=== PATIENT | male | born 1990 | race Caucasian/White ===

== ENCOUNTER 2018-02-12 10:12 | Inpatient (IN) | payer MEDICAID, OTHER ==
--- NOTE | 2018-02-12 10:37 | C.PDOC ---
History Of Present Illness <Yasmeen Patel - Last Filed: 02/12/18 12:56> <Missy Benedict - Last Filed: 02/12/18 13:36> 27 year old male presents to the emergency department status-post an intentional overdose attempted two days ago. Patient reports that he took crystal meth, an unknown pain medication, and Xanax because he "wanted to get high" but he has since been having increased suicidal thoughts. Yesterday, patient reports that he thought about hanging himself but did not make an attempt to do so. He denies using drugs or alcohol since two days ago, and prior history of suicidal ideation. (Yasmeen Patel) History Per: Patient History/Exam Limitations: no limitations Onset/Duration Of Symptoms: Days (2) Suicide/Self Injury Attempted (Context): Ingestion Modifying Factor(s): Other (crystal meth, unknown pain medications, Xanax) Associated Symptoms: Suicidal Thoughts, Suicidal Plan <Yasmeen Patel - Last Filed: 02/12/18 12:56> <Missy Benedict - Last Filed: 02/12/18 13:36> Time Seen by Provider: 02/12/18 10:25 Chief Complaint (Nursing): Psychiatric Evaluation Past Medical History Reviewed: Historical Data, Nursing Documentation, Vital Signs - Medical History PMH: Depression, HIV Denies: Chronic Kidney Disease Surgical History: No Surg Hx Family History: States: No Known Family Hx - Social History Hx Alcohol Use: No Hx Substance Use: Yes - Immunization History Hx Tetanus Toxoid Vaccination: No Hx Influenza Vaccination: Yes Hx Pneumococcal Vaccination: No <Yasmeen Patel - Last Filed: 02/12/18 12:56> Vital Signs: Last Vital Signs Temp 97.9 F 02/12/18 10:17 Pulse 78 02/12/18 10:17 Resp 16 02/12/18 10:17 BP 104/72 02/12/18 10:17 Pulse Ox 98 02/12/18 12:57 Review Of Systems Except As Marked, All Systems Reviewed And Found Negative. Psych: Positive for: Suicidal ideation. Negative for: Psychosis, Withdrawal <Yasmeen Patel - Last Filed: 02/12/18 12:56> Physical Exam - Physical Exam Appears: Non-toxic, No Acute Distress Skin: Warm, Dry Head: Atraumatic, Normacephalic Eye(s): bilateral: Normal Inspection Neck: Normal, Supple Chest: Symmetrical Cardiovascular: Rhythm Regular Respiratory: Normal Breath Sounds Extremity: Normal ROM Neurological/Psych: Oriented x3, Normal Speech, Normal Cognition, Other (active suicidal ideation, no acute psychosis, no acute detox or withdrawal) <Yasmeen Patel - Last Filed: 02/12/18 12:56> ED Course And Treatment - Laboratory Results Result Diagrams: 02/12/18 10:57 02/12/18 10:57 O2 Sat by Pulse Oximetry: 98 (RA) Pulse Ox Interpretation: Normal - Radiology CXR: Interpreted by Me, Viewed By Me CXR Interpretation: Yes: No Acute Disease. No: Infiltrates Progress Note: Plan: EKG. Acetaminophen. Alcohol Serum. CMP. Drug Screen. Salicylate. CBC. CXR One View. Crisis Eval. Urinalysis <Yasmeen Patel - Last Filed: 02/12/18 12:56> - Laboratory Results Result Diagrams: 02/12/18 10:57 02/12/18 10:57 <Msisy Benedict - Last Filed: 02/12/18 13:36> Progress - Data Reviewed Data Reviewed: Lab, EKG, Old records <Yasmeen Patel - Last Filed: 02/12/18 12:56> <Missy Benedict - Last Filed: 02/12/18 13:36> - Re-Evaluation Re-evaluation Note: 02/12/18 12:38 D/W CRISIS, S/P EVAL, PENDING DISPO 02/12/18 12:51 MED CLEAR FOR CRISIS. CRISIS NOTIFIED (Yasmeen Patel) Disposition Counseled Patient/Family Regarding: Studies Performed, Diagnosis - Disposition Disposition Time: 13:00 <Yasmeen Patel - Last Filed: 02/12/18 12:56> <Missy Benedict - Last Filed: 02/12/18 13:36> - Disposition Condition: STABLE Forms: [facility] (Bots[place]an) - Clinical Impression Clinical Impression: Alcohol abuse, Suicidal ideation - Scribe Statement The provider has reviewed the documentation as recorded by the Scribe (Cleve Zelaya) <Yasmeen Patel - Last Filed: 02/12/18 12:56> <Missy Benedict - Last Filed: 02/12/18 13:36> - Scribe Statement Provider Attestation: All medical record entries made by the Scribe were at my direction and personally dictated by me. I have reviewed the chart and agree that the record accurately reflects my personal performance of the history, physical exam, medical decision making, and the department course for this patient. I have also personally directed, reviewed, and agree with the discharge instructions and disposition. (Yasmeen Patel) Physician Patient Turnover Patient Signed Over To: Missy Benedict Handoff Comments: FU DISPO <Yasmeen Patel - Last Filed: 02/12/18 12:56> Addendum <Yasmeen Patel - Last Filed: 02/12/18 12:56> <Missy Benedict - Last Filed: 02/12/18 13:36> Addendum: 02/12/18 13:36 Patient accepted for psychiatric admission by Dr. Sr - major depression. ( Missy Benedict)
[2018-02-12 11:08] LABS: BASO % 0.3 % (0.0-2.0); EOS % 0.3 % (0.0-4.0); HEMOGLOBIN 16.7 g/dL (12.0-18.0); LYMPH # 2.1 K/uL (1.0-4.3); LYMPH % 16.2 % (20.0-40.0); MEAN CELL VOLUME 84.2 fL (80.0-94.0); MEAN CORPUSCULAR HEMOGLOBIN 28.6 pg (27.0-31.0); MEAN PLATELET VOLUME 8.3 fL (7.2-11.7); MONO # 0.9 K/uL (0.0-0.8); NEUT % 76.2 % (50.0-75.0); NRBC % 0.1 % (0.0-2.0); RBC 5.86 Mil/uL (4.40-5.90); RED CELL DISTRIBUTION WIDTH 14.2 % (11.5-14.5); WHITE BLOOD COUNT 13.2 K/uL (4.8-10.8)
[2018-02-12 11:10] LABS: URINE BILIRUBIN NEGATIVE (NEGATIVE); URINE BLOOD NEGATIVE (NEGATIVE); URINE CLARITY Clear (Clear); URINE COLOR Amber (YELLOW); URINE GLUCOSE (UA) NORMAL (Normal); URINE LEUKOCYTE ESTERASE NEG Leu/uL (Negative); URINE PROTEIN 1+ mg/dL (NEGATIVE)
[2018-02-12 11:25] LABS: ACETAMINOPHEN < 10.0 ug/mL (10.0-30.0); SALICYLATE < 1.0 mg/dL 1
[2018-02-12 11:26] LABS: ALB/GLOB RATIO 1.4 (1.0-2.1); ALBUMIN 5.3 g/dL (3.5-5.0); ALT/SGPT 67 U/L (21-72); AST/SGOT 90 U/L (17-59); BLOOD UREA NITROGEN 26 mg/dL (9-20); CALCIUM 10.2 mg/dl (8.6-10.4); GFR AFRICAN-AMERICAN > 60; GFR NON-AFRICAN AMERICAN > 60
[2018-02-12 11:34] LABS: BARBITURATES, UR NEGATIVE (NEGATIVE); OPIATES, UR NEGATIVE (NEGATIVE); PHENCYCLIDINE, UR NEGATIVE (NEGATIVE)
[2018-02-12 11:36] LABS: BENZODIAZEPINES, UR POSITIVE (NEGATIVE)
--- NOTE | 2018-02-12 14:32 | PCM.BM ---
<Antonietta Escobedo - Last Filed: 02/12/18 14:31> Treatment Plan Problems - Problems identified on initial assessmt Depression Date Initiated: 02/12/18 Time Initiated: 14:31 Assessment reference: NA Status: Active Suicidal Ideation Date Initiated: 02/12/18 Time Initiated: 14:31 Assessment reference: NA Status: Active Treatment assets and liabiliti Patient Assests: adapts well, cooperative, ADL independent, negotiates basic needs, cognitively intact Patient Liabilities: live alone (Lives with grandmother), financial problems, poor support system, substance abuse (Crystal Meth), medical problems (HIV positive) - Milieu Protocol Maintain good personal hygiene: daily Encourage regular showers, daily Remind patient to perform daily oral care, daily Assist patient to perform ADL's (Self) Conduct patient checks and document Observation sheet: Q15 minutes (Safety) Maintain personal safety: every shift Educate patient to report safety concerns to staff, every shift Monitor environment for contraband/sharps Medication safety: Monitor for expected outcome, potential side effects: every shift, Assess barriers to learning: every shift, Assess readiness for medication education: every shift <Linda Mason - Last Filed: 02/13/18 11:35> - Diagnosis (1) Moderate major depression, single episode Status: Acute Interventions: 02/13/18 11:35 * Assess/adjust medications daily and /or as needed * See patient on an individual basis 7x/week to assess symptoms of depression * Monitor for side effects & effectiveness of medications * <Linda Chavez - Last Filed: 02/13/18 13:30> Family Contact Family involvement: Family/SO is involved Family contact: Patient agrees to contact Family contact name: Brayden Corbin-father Family contacted how many times per week?: 1 - Goals for Treatment Patient goals for treatment: "I want to go to rehab." Discharge/Continuing Care - Education Needs Education Needs: Patient Medication, Patient Coping Skills, Patient Placement options, Patient Community resources - Discharge Discharge Criteria: Tolerates medication w/o severe side effects, No longer exhibiting s/s of withdrawal, Reduction of target symptoms Discharge to:: Substance Abuse Rehab - Treatment Team Participation Discussed with Family/SO: No Was Patient/Family/SO present at Treatment Team Meeting: Yes
--- NOTE | 2018-02-12 14:55 | RAD ---
PROCEDURE: CHEST RADIOGRAPH, 1 VIEW HISTORY: overdose COMPARISON: None available. FINDINGS: LUNGS: Clear. PLEURA: No pneumothorax or pleural fluid seen. CARDIOVASCULAR: Normal. OSSEOUS STRUCTURES: No significant abnormalities. VISUALIZED UPPER ABDOMEN: Normal. OTHER FINDINGS: None. IMPRESSION: No active disease.
--- NOTE | 2018-02-13 10:23 | PCM.PSYCH ---
Initial Psychiatric Evaluation - Initial Psychiatric Evaluation Type of Admission: Voluntary Legal Status: Capacity Chief Complaint (in patient's own words): I was feeling depressed and suicidal.' History of Present Illness and Precipitating Events: Pt is a 27 year old HM, who was escorted to the hospital by the family due to depressed mood and suicidal ideation. Patient has history of few inpatient psychiatric hospitalizations. His last discharged from [facility] almost 2 years ago. He reports of seeing an outpatient doctor at [facility]. As per the patient he relapsed on crystal meth. Patient reports of injecting 1-3 bags crystal meth daily. Yesterday he became increasingly depressed and suicidal, and came to the hospital to get help. As per the ED note, pt states he is unable to identify a specific trigger for the suicidal ideation, but attributes "at least partly because I haven't used crystal." When asked if patient has a specific suicide plan, he states "I'll pull a [place] and hang myself." Pt states he last used crystal meth on Tuesday night. Pt states he has not eaten, slept, or drank since 2 days. Pt states while withdrawing, pt saw "shadows," but denies current hallucinations. Pt denies H/I. Pt reports his last substance abuse treatment was at [facility] in 2016 where he was for 31 days, and stayed clean x2 weeks following d/ c. Pt mood presents depressed and and reports feelings of hopelessness and helplessness. Remained isolated and withdrawn. He reports poor sleep and poor appetite. He denies any auditory hallucinations. Past medical history HIV, Hep C Current Medications: Active Medications Generic Name Dose Route Start Last Admin Trade Name Freq PRN Reason Stop Dose Admin Hydroxyzine HCl 25 mg 02/12/18 17:45 Atarax PO Q6 PRN Anxiety Loperamide HCl 2 mg 02/12/18 20:10 02/12/18 20:15 Imodium PO 2 mg QID PRN Administration Diarrhea Lorazepam 1 mg 02/12/18 17:45 Ativan PO Q6 PRN severe anxiety Mirtazapine 15 mg 02/12/18 22:00 02/12/18 21:09 Remeron PO 15 mg HS SCOTT Administration Pneumococcal Polyvalent Vaccine 0.5 ml 02/15/18 10:00 Pneumovax 23 Vaccine IM 02/15/18 10:01 .ONCE ONE Risperidone 0.5 mg 02/12/18 18:00 02/13/18 09:58 Risperdal Tab PO Not Given BID SCOTT Trazodone HCl 50 mg 02/12/18 20:12 Desyrel PO HS PRN Insomnia Past Psychiatric History - Past Psychiatric History Previous Treatment History: Inpatient Pertinent Medical Hx (Current Medical&Sleep Prob, Allergies): Allergies Allergy/AdvReac Type Severity Reaction Status Date / Time No Known Allergies Allergy Verified 02/12/18 10:20 Darunavir [Prezista] 800 mg PO DAILY 04/24/16 Emtricitabine/Tenofovir Diso [Truvada 200 MG-300 MG] 1 tab PO DAILY 04/24/16 Ritonavir [Norvir] 100 mg PO DAILY 04/24/16 Review of Systems - Review of Systems All systems: reviewed and no additional remarkable complaints except (L) - Psychiatric Psychiatric: Anxiety, Depression, Suicidal Ideation Mental Status Examination - Personal Presentation Personal Presentation: Looks stated age - Affect Affect: Constricted, Depressed - Motor Activity Motor Activity: Calm - Reliability in Providing Information Reliability in Providing Information: Good - Speech Speech: Organized - Mood Mood: Depressed, Anxious - Formal Thought Process Formal Thought Process: No Impairment - Hallucinations/Delusions Hallucinations: Visual - Obsessions/Compulsions Obsessions: No Compulsions: No - Cognitive Functions Orientation: Person, Place, Situation, Time Sensorium: Alert Attention/Concentration: Attentive Abstract Thinking: [place] Estimate of Intelligence: Below average Judgement: Imparied, as evidence by: Poor judgement, Imparied, as evidence by: Lack of insight into illness - Risk Risk: Suicidal, Diminished functioning - Limitations Limitations: Living alone DSM 5 DX - DSM 5 DSM 5 Diagnosis: 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
[2018-02-13] MEDS: Emtricitabine-Tenofovir 200 mg-300 mg Tab PO SCH (10:44)
[2018-02-14 06:35] VITALS: O2SAT 98
[2018-02-14] MEDS: Emtricitabine-Tenofovir 200 mg-300 mg Tab PO SCH (09:52)
--- NOTE | 2018-02-14 10:18 | PCM.PYCHPN ---
Psychiatric Progress Note - Psychiatric Progress Note Patient seen today, length of contact: 15 min Patient Chief Complaint: I am feeling better.' Problems Identified/Issues Discussed: Patient seen and evaluated, chart reviewed and discussed with the nurse. Today patient reports some improvement in the depressed mood but still remained isolated, and withdrawn. Reports improvement in his sleep and appetite. He wants to go to the inpatient rehabilitation after discharge. As per the patient he is already spoke with the program and today he signed 48 hours notice. However he denies any suicidal ideation or homicidal ideation. He is taking medications and denies any side effects Symptoms are improving but he needs more time for stabilization. Supportive therapy and psychoeducation were given. Medication Change: Yes Medical Record Reviewed: Yes Mental Status Examination - Cognitive Function Orientation: Person, Place, Situation, Time Memory: Intact Attention: WNL Concentration: Poor Association: WNL Fund of Knowledge: Poor - Mood Mood: Depressed, Anxious - Affect Affect: Constricted, Depressed - Speech Speech: Soft - Formal Thought Process Formal Thought Process: No Impairment - Suicidal Ideation Suicidal Ideation: No - Homicidal Ideation Homicidal Ideation: No Goal/Treatment Plan - Goal/Treatment Plan Need for Continued Stay: Severe depression anxiety, Severe functional impairment Progress Toward Problem(s) and Goals/Treatment Plan: Major depressive disorder recurrent severe with psychotic features -CBT -Psychoeducation -Supportive therapy, group therapy, individual therapy -Trazodone 100 mg by mouth daily at bedtime -Gabapentin 100 mg PO TID -Paxil 10 mg by mouth daily Methamphetamine use disorder severe -CBT -Psychoeducation -Supportive therapy, individual therapy -Use [place] for abstinence HIV -Continue prescribed medications -Monitor signs and symptoms - Smoking Cessation Smoking Cessation Initiated: No
[2018-02-14] MEDS: TRIUMEQ 600-50-300 PO SCH (17:34)
[2018-02-15 05:32] VITALS: BP 108/70; PULSE 80; RESP 19; TEMP 98
[2018-02-15] MEDS: TRIUMEQ 600-50-300 PO SCH (09:44)
[2018-02-15] MEDS: Emtricitabine-Tenofovir 200 mg-300 mg Tab PO SCH (09:46)
--- NOTE | 2018-02-15 09:55 | PCM.PYCHDC ---
Mental Status Examination - Mental Status Examination Orientation: Person, Place, Situation, Time Memory: Intact Mood: Neutral Affect: Constricted Speech: Soft Attention: WNL Concentration: WNL Association: WNL Fund of Knowledge: WNL Formal Thought Process: No Impairment Description of patient's judgement and insight: good, fair Psychotic Thoughts and Behaviors: denies any AVH Suicidal Ideation: No Current Homicidal Ideation?: No Discharge Summary - Discharge Note Reason for Hospitalization: Pt is a 27 year old HM, who was escorted to the hospital by the family due to depressed mood and suicidal ideation. Patient has history of few inpatient psychiatric hospitalizations. His last discharged from [facility] almost 2 years ago. He reports of seeing an outpatient doctor at [facility]. As per the patient he relapsed on crystal meth. Patient reports of injecting 1-3 bags crystal meth daily. Yesterday he became increasingly depressed and suicidal, and came to the hospital to get help. As per the ED note, pt states he is unable to identify a specific trigger for the suicidal ideation, but attributes "at least partly because I haven't used crystal." When asked if patient has a specific suicide plan, he states "I'll pull a [place] and hang myself." Pt states he last used crystal meth on Tuesday night. Pt states he has not eaten, slept, or drank since 2 days. Pt states while withdrawing, pt saw "shadows," but denies current hallucinations. Pt denies H/I. Pt reports his last substance abuse treatment was at [facility] in 2016 where he was for 31 days, and stayed clean x2 weeks following d/ c. Pt mood presents depressed and and reports feelings of hopelessness and helplessness. Remained isolated and withdrawn. He reports poor sleep and poor appetite. He denies any auditory hallucinations. Consultations:: List each consultation separately and include: 1. Reason for request. 2. Findings. 3. Follow-up Summary of Hospital Course include:: 1. Description of specific treatment plan utilized for patients during their course of treatmen. 2. Summarize the time- course for resolution of acute symptoms and/or regressed behaviors. 3. Describe issues identified and worked on during hospitalization. 4. Describe medication utilized. 5. Describe medical problems identified and treated. 6. Reassessment of suicide risk Summary of Hospital Course: Pt is a 27 year old HM, who was escorted to the hospital by the family due to depressed mood and suicidal ideation. Patient has history of few inpatient psychiatric hospitalizations. His last discharged from [facility] almost 2 years ago. He reports of seeing an outpatient doctor at [facility]. As per the patient he relapsed on crystal meth. Patient reports of injecting 1-3 bags crystal meth daily. Yesterday he became increasingly depressed and suicidal, and came to the hospital to get help. As per the ED note, pt states he is unable to identify a specific trigger for the suicidal ideation, but attributes "at least partly because I haven't used crystal." When asked if patient has a specific suicide plan, he states "I'll pull a [place] and hang myself." Pt states he last used crystal meth on Tuesday night. Pt states he has not eaten, slept, or drank since 2 days. Pt states while withdrawing, pt saw "shadows," but denies current hallucinations. Pt denies H/I. Pt reports his last substance abuse treatment was at [facility] in 2016 where he was for 31 days, and stayed clean x2 weeks following d/ c. Pt mood presents depressed and and reports feelings of hopelessness and helplessness. Remained isolated and withdrawn. He reports poor sleep and poor appetite. He denies any auditory hallucinations. 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 Disposition: HOME/ ROUTINE Follow-up Treatment Plan: Major depressive disorder recurrent severe with psychotic features -CBT -Psychoeducation -Supportive therapy, group therapy, individual therapy -Trazodone 100 mg by mouth daily at bedtime -Gabapentin 100 mg PO TID -Paxil 10 mg by mouth daily Methamphetamine use disorder severe -CBT -Psychoeducation -Supportive therapy, individual therapy -Use [place] for abstinence HIV -Continue prescribed medications -Monitor signs and symptoms Prescriptions/Medication Reconciliation: Gabapentin [Neurontin] 100 mg PO BID #60 cap PARoxetine [Paxil] 10 mg PO DAILY #30 tab traZODone [Desyrel] 50 mg PO HS PRN #30 tab PRN Reason: Insomnia - Smoking Cessation Smoking Cessation Medication prescribed: No - Antipsychotic Medications Pt discharged on 2 or more routine antipsychotic medications: No
[2018-02-15] MEDS ORDERED: Pneumococcal 23-Valent Vaccine IM ONE (10:00)
--- NOTE | 2018-02-15 22:35 | CARD ---
APPROVED REPORT EKG Measurement Heart [id number] <Conclusion> Normal sinus rhythm Nonspecific ST abnormality Abnormal ECG
== END 2018-02-15 12:30 | disposition home or self-care (01) | DRG 430 ==
LOC: C.ER 10:12 → C.5E 13:39
PROVIDERS: ADMIT Psychiatry & Neurology Psychiatry; ATTEND Psychiatry & Neurology Psychiatry
PROC: GZ3ZZZZ Medication Management (ICD-10-PCS; principal; 2018-02-12)
PROC: GZHZZZZ Group Psychotherapy (ICD-10-PCS; 2018-02-12)
PROC: GZ56ZZZ Individual Psychotherapy, Supportive (ICD-10-PCS; 2018-02-12)
PROC: HZ89ZZZ Medication Management for Substance Abuse Treatment, Other Replacement Medication (ICD-10-PCS; 2018-02-12)
PROC: HZ56ZZZ Individual Psychotherapy for Substance Abuse Treatment, Psychoeducation (ICD-10-PCS; 2018-02-12)
PROC: HZ59ZZZ Individual Psychotherapy for Substance Abuse Treatment, Supportive (ICD-10-PCS; 2018-02-12)
DX: F33.3 Major depressive disorder, recurrent, severe with psychotic symptoms (principal); F15.20 Other stimulant dependence, uncomplicated; R45.851 Suicidal ideations; F10.10 Alcohol abuse, uncomplicated; B18.2 Chronic viral hepatitis C; Z21 Asymptomatic human immunodeficiency virus [HIV] infection status; Z91.5 Personal history of self-harm